=== PATIENT | male | born 1960 | race Caucasian/White ===

== ENCOUNTER 2016-07-03 06:20 | Emergency (ER) ==
[2016-07-03] MEDS ORDERED: NS 1,000 ML IV ONE ×2 (07:23→07:24)
--- NOTE | 2016-07-03 07:23 | PROVIDER DOCUMENTATION ---
HPI-Abdominal Pain/GI Problem - General Chief Complaint: Nausea/Vomiting Stated Complaint: N/V Time Seen by Provider: 07/03/16 07:16 Source: patient Allergies/Adverse Reactions: Patient Allergies Allergy/AdvReac Type Severity Reaction Status Date / Time ciprofloxacin [From Cipro] Allergy Unknown Verified 07/03/16 06:52 ciprofloxacin HCl * Allergy Unknown Verified 07/03/16 06:52 [From Cipro] codeine Allergy NAUSEA Verified 04/24/16 10:02 Home Medications: Home Medication List Medication Instructions Recorded Confirmed Last Taken Type Albuterol Sulfate [Proair Hfa] 8.5 gm INH PRN PRN 12/06/15 07/03/16 Unknown History Losartan/Hydrochlorothiazide 1 tab PO DAILY 12/06/15 07/03/16 Unknown History [Hyzaar 100/25 Tablet] Metoprolol [Lopressor] 50 mg PO BID 12/06/15 07/03/16 Unknown History Budesonide/Formoterol Fumarate 2 puff INH PRN PRN 07/03/16 07/03/16 Unknown History [Symbicort 160-4.5 Mcg Inhaler] Promethazine [Phenergan] 25 mg PO Q6H PRN PRN #20 tablet 07/03/16 Unknown Rx - History of Present Illness-ABD Nature of Presenting Problems: began with N/V last pm. Says stools, but no diarrhea. No fever. Only abd pain is soreness for repetitive vomitinh. Has had this sev times before. Was dx with H pylori last year, tx with abx, got better initially, but sx have returned since then. Abdominal Pain Onset Location: reports: other (no actual pain) Pain Radiation: reports: other (if no pain, cannot radiate) Quality of Pain: reports: none Severity in ED: reports: moderate Onset/Duration: reports: last night Timing: reports: still present Activities at Onset: reports: none Exposure to sick contacts?: No Modifying Factors: improves with: nothing Associated Symptoms: reports: nausea, vomiting. denies: diarrhea, fever/chills Similar Symptoms Previously?: Yes Recently seen or treated by another doctor?: No (seen here, has seen GI, but not recently. Does not see PCP for this) Review of Systems - Adult - REVIEW OF SYSTEMS - ADULT Constitutional: reports: no symptoms reported Eyes: reports: no symptoms reported Ears, Nose, Mouth & Throat: reports: no symptoms reported Cardiovascular: reports: no symptoms reported Respiratory: reports: no symptoms reported Gastrointestinal: reports: see HPI Genitourinary: reports: no symptoms reported Musculoskeletal: reports: no symptoms reported Integumentary: reports: no symptoms reported Neurological: reports: no symptoms reported Psychiatric: reports: no symptoms reported Endocrine: reports: no symptoms reported Hematologic/Lymphatic: reports: no symptoms reported Allergic/Immunologic: reports: no symptoms reported Past History - Adult - PAST MEDICAL HISTORY-ADULT Review of Records: reports: Medications Reviewed Major Childhood Illnesses: reports: denies history Cardiovascular: reports: HTN Respiratory: reports: COPD Gastrointestinal: reports: denies history Obstetrical/Gynecological: reports: denies history Genitourinary: reports: denies history Musculoskeletal: reports: neck/back injury Neurological: reports: denies history Psychiatric: reports: denies history Endocrine/Immune: reports: denies history Other Conditions: reports: denies history - PRIOR SURGERIES/PROCEDURES Surgical/Procedure History: reports: cholecystectomy, tonsillectomy, orthopedic (extremity) - PRIOR HOSPITALIZATIONS Prior Hospitalizations: reports: for other non-related - IMMUNIZATION STATUS Childhood Immunizations: See Nurse Assessment Flu Vaccine: See Nurse Assessment - FAMILY HISTORY Family History: reviewed, not pertinent - SOCIAL HISTORY Smoking: quit greater than 1 year Physical Exam-General - PHYSICAL EXAM-ADULT Initial Vital Signs Reviewed: Yes - CONSTITUTIONAL General Appearance: appears well, alert, no apparent distress - EYES Eyes: PERRL/EOMI, pink conjunctivae - HEAD, EARS, NOSE, MOUTH & THROAT HENMT: normocephalic/atraumatic, normal ENT inspection, other (oral menbranes sl dry) - NECK Neck: full range of motion, supple - RESPIRATORY Respiratory: lungs clear, normal breath sounds, no respiratory distress, no accessory muscle use - CARDIOVASCULAR Cardiovascular: regular rate, rhythm, no gallop, no murmur - GASTROINTESTINAL (ABDOMEN) Abdominal Exam: normal bowel sounds, non tender, soft - GENITOURINARY Male Genitalia: deferred Rectal Exam: deferred - MUSCULOSKELETAL Back Exam: normal inspection, no CVA tenderness, no vertebral tenderness Extremity: normal range of motion, non-tender - SKIN Integumentary: normal color, normal turgor, warm/dry - NEUROLOGIC Neurologic: food beverage manager II-XII nml as tested, grossly normal, no motor/sensory deficits - PSYCHIATRIC Psych/Mental Status: normal mood/affect, normal thought content, normal thought process, oriented x 3 Progress - PLAN OF CARE/RESULTS Progress/Plan/Lab Results: Vital Signs Temp Pulse Resp BP Pulse Ox 07/03/16 06:47 98.2 F 108 H 18 114/78 100 ciprofloxacin [From Cipro] Allergy (Verified 07/03/16 06:52) Unknown ciprofloxacin HCl * [From Cipro] Allergy (Verified 07/03/16 06:52) Unknown codeine Allergy (Verified 04/24/16 10:02) NAUSEA Albuterol Sulfate [Proair Hfa] 8.5 gm INH PRN PRN 12/06/15 Losartan/Hydrochlorothiazide [Hyzaar 100/25 Tablet] 1 tab PO DAILY 12/06/15 Metoprolol [Lopressor] 50 mg PO BID 12/06/15 Budesonide/Formoterol Fumarate [Symbicort 160-4.5 Mcg Inhaler] 2 puff INH PRN PRN 07/03/16 Orders Category Date Time Status 0.9% Sodium Chloride Inj [Ns] 1,000 ml Med 07/03/16 07:23 Discontinued IV 999 mls/hr 0.9% Sodium Chloride Inj [Ns] 1,000 ml Med 07/03/16 07:24 Discontinued IV 999 mls/hr Ondansetron [Zofran] Med 07/03/16 07:24 Discontinued 8 mg IV NOW ONE Pantoprazole [Protonix] Med 07/03/16 07:24 Discontinued 40 mg IV NOW ONE Sodium Chloride 0.9% Med 07/03/16 07:24 Discontinued 10 ml INJ NOW ONE - REASSESSMENT Reassessment #1 Time Reassessed: 09:43 Status: improving Reassessment Comment: now trying po fluids Reassessment #2 Time Reassessed: 10:35 (tolerating po) Status: improving Departure - Departure Time of Disposition Order: 10:34 DIAGNOSIS: Vomiting Qualifiers: Vomiting type: unspecified Vomiting Intractability: non-intractable Nausea presence: with nausea Qualified Code(s): R11.2 - Nausea with vomiting, unspecified Disposition: HOME 01 Certified Medical Emergency: Emergent Condition: Good Additional Instructions: ED Follow Up Instructions: You have been treated by a care provider in the Emergency Department. These instructions are being provided to you so you can have an understanding of how to care for yourself upon discharge. Upon discharge from the Emergency Department, you are responsible for making arrangements for follow-up care by a physician of your choice. Take all prescribed medications as directed. Return to the Emergency Department immediately for any new or worsening symptoms. You may call the Physician Referral phone number at [phone] to obtain a list of Physicians who are taking new patients. Prescriptions: Promethazine [Phenergan] 25 mg PO Q6H PRN PRN #20 tablet PRN Reason: Nausea And Vomiting Instructions: Nausea and Vomiting
[2016-07-03] MEDS ORDERED: PROTONIX IV ONE (07:24)
[2016-07-03] MEDS ORDERED: SODIUM CHLORIDE 0.9% INJ ONE (07:24)
[2016-07-03] MEDS ORDERED: ZOFRAN IV ONE (07:24)
[2016-07-03 11:05] VITALS: BP 108/73
== END 2016-07-03 11:04 | disposition home or self-care (01) ==
LOC: P.ED 06:20
DX: R11.2 Nausea with vomiting, unspecified (principal); I10 Essential (primary) hypertension; J44.9 Chronic obstructive pulmonary disease, unspecified; Z79.899 Other long term (current) drug therapy; Z87.891 Personal history of nicotine dependence
CPT/HCPCS: C9113; J2405; J7030; S0164

== ENCOUNTER 2019-04-13 04:44 | Inpatient (IN) ==
--- NOTE | 2019-04-08 08:32 | EKG Report ---
Test Performed on : 04/08/2019 08:23:27 AM Test Reason : PAT Blood Pressure : / mmHG Vent. Rate : 110 BPM Atrial Rate : 110 BPM P-R Int : 152 ms QRS Dur : 076 ms QT Int : 336 ms P-R-T Axes : 080 085 079 degrees QTc Int : 454 ms Sinus tachycardia. Otherwise normal ECG When compared with ECG of 20-FEB-2016 04:32, No significant change was found Confirmed by Micaela CARRASCO, Jason ([id number]) on 04/08/2019 8:42:25 AM
[2019-04-08 08:45] LABS: URINE SOURCE CLEAN CATCH
[2019-04-08 09:05] LABS: BILIRUBIN URINE NEGATIVE (NEGATIVE); BLOOD URINE NEGATIVE (NEGATIVE); COLOR YELLOW; GLUCOSE URINE NEGATIVE (NEGATIVE); KETONE URINE NEGATIVE (NEGATIVE); LEUKOCYTES URINE NEGATIVE (NEGATIVE); NITRITE URINE NEGATIVE (NEGATIVE); PH URINE 5.5; PROTEIN URINE NEGATIVE (NEGATIVE); SP GRAVITY URINE 1.014; TURBIDITY URINE CLEAR (CLEAR); UROBILINOGEN URINE NORMAL (NORMAL)
[2019-04-08 09:06] LABS: UR EPITHELIAL CELLS <10 /HPF (<10); URINE BACTERIA NEGATIVE /HPF; URINE RBC <10 /HPF (<10); URINE WBC <10 /HPF (<10)
[2019-04-08 09:17] LABS: BASO# 0.02 X1000 (0.0-0.2); BASO% 0.4 % (0.0-0.8); EOS# 0.07 X1000 (0.0-0.7); EOS% 1.2 % (0.0-10.0); HEMATOCRIT 36.8 % (42.0-52.0); HEMOGLOBIN 11.5 g/dL (14.0-18.0); HEMOGLOBIN A1C 5.9 % (4.8-6.0); LYMPH# 1.72 X1000 (1.2-3.4); LYMPH% 30.6 % (20.5-51.1); MCH 22.6 PG (27-31); MCHC 31.3 g/dL (33-37); MCV 72.4 FL (81-99); MPV 9.9 FL (7.4-10.4); NEUT# 2.91 X1000 (1.4-6.5); NEUT% 51.8 % (42.2-75.2); PLT 276 X1000 (130-400); RBC 5.08 XMIL (4.7-6.1); RDW 18.5 % (11.5-14.5); WBC 5.62 X1000 (4.8-10.8)
[2019-04-08 09:51] LABS: PROTIME 13.3 Seconds (11.0-16.0)
[2019-04-08 09:52] LABS: PTT 26.1 Seconds (22.3-41.8)
[2019-04-08 10:27] LABS: ALBUMIN 4.5 g/dL (3.5-5.0); CALCIUM 10.2 mg/dL (8.8-10.2); CREATININE 1.3 mg/dL (0.7-1.2)
[2019-04-13] MEDS ORDERED: DIPRIVAN 1% ONE ×3 (08:31→12:12)
[2019-04-13] MEDS ORDERED: VALIUM ONE (08:37)
[2019-04-13] MEDS ORDERED: COLACE ONE (08:37)
[2019-04-13] MEDS ORDERED: PEPCID ONE (08:37)
[2019-04-13] MEDS ORDERED: REGLAN ONE (08:37)
[2019-04-13] MEDS ORDERED: LYRICA ONE (08:38)
[2019-04-13] MEDS ORDERED: KEFZOL 1 GM/D5W 2 GM/100 ML IVPB ONE (08:38)
[2019-04-13] MEDS ORDERED: CELEBREX ONE (08:38)
[2019-04-13] MEDS ORDERED: LR 1,000 ML ONE (08:38)
[2019-04-13] MEDS ORDERED: DURAMORPH ONE (09:32)
[2019-04-13] MEDS ORDERED: TORADOL ONE (09:32)
[2019-04-13] MEDS ORDERED: MARCAINE 0.25% PF ONE (09:32)
[2019-04-13] MEDS ORDERED: SODIUM CHLORIDE 0.9% ONE (09:33)
[2019-04-13] MEDS ORDERED: NEOSPORIN G.U. IRRIGANT ONE (09:33)
[2019-04-13] MEDS ORDERED: EXPAREL 1.3% ONE (09:33)
[2019-04-13] MEDS ORDERED: CYKLOKAPRON 1,000 MG/NS 1,000 MG/100 ML IVPB ONE (09:33)
[2019-04-13] MEDS ORDERED: ROBINUL ONE (11:23)
[2019-04-13 11:48] LABS: URINE SOURCE CATH
[2019-04-13] MEDS ORDERED: ZOFRAN ONE (11:51)
[2019-04-13] MEDS ORDERED: DECADRON ONE (11:51)
[2019-04-13 11:53] LABS: BILIRUBIN URINE SMALL (NEGATIVE); BLOOD URINE NEGATIVE (NEGATIVE); COLOR YELLOW; GLUCOSE URINE NEGATIVE (NEGATIVE); KETONE URINE 20 mg/dL (NEGATIVE); LEUKOCYTES URINE SMALL (NEGATIVE); NITRITE URINE NEGATIVE (NEGATIVE); PROTEIN URINE 30 mg/dL (NEGATIVE); SP GRAVITY URINE 1.024; TURBIDITY URINE CLEAR (CLEAR); UROBILINOGEN URINE 6 mg/dL (NORMAL)
[2019-04-13 11:55] LABS: UR EPITHELIAL CELLS >10 /HPF (<10); URINE BACTERIA NEGATIVE /HPF; URINE RBC <10 /HPF (<10)
[2019-04-13] MEDS: DILAUDID ONE ×4 (13:15→13:41)
[2019-04-13] MEDS ORDERED: NS 1,000 ML ONE (13:32)
[2019-04-13] MEDS ORDERED: NS 1,000 ML IV SCH (13:45)
[2019-04-13] MEDS ORDERED: MORPHINE IV PRN ×3 (13:45)
[2019-04-13] MEDS ORDERED: OXY IR PO PRN (13:45)
[2019-04-13] MEDS ORDERED: ZOFRAN IV PRN (13:45)
--- NOTE | 2019-04-13 14:20 | OPERATIVE NOTE ---
PROCEDURE DATE: 04/13/2019 PREOPERATIVE DIAGNOSIS: Left hip degenerative joint disease. POSTOPERATIVE DIAGNOSIS: Left hip degenerative joint disease. PROCEDURE PERFORMED: Left anterior total hip arthroplasty using a DePuy size 15 standard offset + 4, 36 mm head with a 62 mm hemispherical shell and two 6.5 cancellous screws of 30 and 25 mm, and a 36 mm acetabular liner. ANESTHESIA: General. SURGEON: Ángel Hilliard MD. BIOLOGICAL TECHNICAL OFFICER: KETTY Gomez, who was present throughout the case and whose assistance was critical for successful completion of the case including assisting with the procedure and decision- making. BLOOD LOSS: Minimal. DRAINS: None. DESCRIPTION OF PROCEDURE: The patient was brought to the operative suite and placed in the supine position. After successful administration of spinal anesthesia, the patient was placed on the OSI table in the usual position for left hip. The left hip was then prepped and draped in the usual sterile fashion. A longitudinal incision was made beginning 2.5 cm distal and 3 cm lateral to the anterior-superior iliac spine, and extending distally and slightly laterally 8 cm, dissected sharply through the skin and subcutaneous tissue down to the tensor fascia. The tensor fascia was incised, dissected bluntly down to the deep tensor fascia. The deep tensor fascia was incised and circumflex vessels electrocauterized, exposing the anterior capsule. A T-capsulotomy was performed, exposing the femoral neck. Femoral neck cut was made with oscillating saw. The femoral head was removed with a power corkscrew. The labrum was resected. The acetabulum was serially reamed to a 62 to accept a 60 cup. The 60 cup was then driven in place in the proper amount of inclination and anteversion under fluoroscopy. Then two 6.5 cancellous screws were placed, 30 mm superiorly and 25 mm posterosuperiorly. Then the acetabular liner was locked onto the shell. Attention was then directed to the femur. It was externally rotated, extended, adducted, and elevated out of the wound with the hook on the OSI bed. The lateral neck was rongeured. The canal was serially broached to a size 15. A size 15 standard offset +4 neck length was found be excellent leg length offset, fit and fill of the stem, and stability of the hip. The trial was then removed. The definitive stem was seated onto the femur. Then the +4 neck length head was seated onto the Ibanez taper. The hip was again reduced. It was again found to be in excellent position. The hip was copiously irrigated with normal saline containing irrigant and Vashe irrigation. Then the knee was infiltrated with Exparel including the posterior capsule, anterior capsule, intermuscular, and subcutaneous tissue. The anterior capsule was repaired with 0 V-Loc. The tensor fascia was closed with 0 V-Loc. The skin edge was approximated with 2-0 Vicryl and closed with a 4-0 Monocryl and Prineo, and a sterile dressing was applied. The patient tolerated the procedure well without complication. At the end of the procedure, all counts were correct x2. The patient was transferred to the recovery room in stable condition. cc: Ángel Hilliard MD
[2019-04-13] MEDS: ULTRAM PO SCH ×2 (15:16→20:33)
[2019-04-13] MEDS: TYLENOL PO SCH ×2 (15:17→20:34)
[2019-04-13] MEDS ORDERED: CYKLOKAPRON 1,000 MG in NS 100 ML IV ONE (16:30)
[2019-04-13] MEDS: KEFZOL 2 GM/D5W 2 GM/50 ML IVPB IV SCH (18:11)
[2019-04-13] MEDS ORDERED: VENTOLIN HFA INH PRN (18:54)
[2019-04-13] MEDS ORDERED: COLACE PO PRN (18:54)
[2019-04-13] MEDS: OXY IR PO PRN (19:31)
[2019-04-13] MEDS: CELEBREX PO SCH (20:33)
[2019-04-13] MEDS: PERIDEX MT SCH (20:34)
[2019-04-13] MEDS: COLACE PO SCH (20:34)
[2019-04-13] MEDS: LYRICA PO SCH (20:35)
[2019-04-13] MEDS ORDERED: LOPRESSOR PO SCH (21:00)
[2019-04-14] MEDS: OXY IR PO PRN (00:23)
[2019-04-14] MEDS: KEFZOL 2 GM/D5W 2 GM/50 ML IVPB IV SCH (03:06)
[2019-04-14] MEDS: ULTRAM PO SCH ×2 (03:07→09:22)
[2019-04-14] MEDS: TYLENOL PO SCH ×2 (03:08→09:21)
[2019-04-14] MEDS ORDERED: XARELTO PO SCH (06:00)
[2019-04-14 06:59] LABS: HEMATOCRIT 27.5 % (42.0-52.0); HEMOGLOBIN 8.5 g/dL (14.0-18.0)
[2019-04-14] MEDS ORDERED: PRILOSEC PO SCH (07:00)
[2019-04-14 07:28] LABS: AGAP 11; BUN 10 mg/dL (8-22); CALCIUM 8.7 mg/dL (8.8-10.2); CHLORIDE 97 mmol/L (98-107); COSMO 267; CREATININE 1.2 mg/dL (0.7-1.2); ESTIMATED GFR > 60; GLUCOSE 127 mg/dL (70-104); POTASSIUM 4.1 mmol/L (3.5-5.1); SODIUM 133 mmol/L (136-145); TCO2 25 mmol/L (25-35)
[2019-04-14] MEDS ORDERED: SYMBICORT 160/4.5 MICROGM INHALER INH SCH (07:30)
[2019-04-14] MEDS ORDERED: SALINE LOCK IV FLUID XX ONE (07:43)
[2019-04-14] MEDS ORDERED: HYDROCHLOROTHIAZIDE PO SCH (09:00)
[2019-04-14] MEDS ORDERED: COZAAR PO SCH (09:00)
[2019-04-14] MEDS ORDERED: DECADRON IV ONE (09:00)
[2019-04-14] MEDS: PERIDEX MT SCH (09:20)
[2019-04-14] MEDS: COLACE PO SCH (09:21)
[2019-04-14] MEDS: CELEBREX PO SCH (09:21)
[2019-04-14] MEDS: LYRICA PO SCH (09:21)
[2019-04-14 12:06] VITALS: BP 126/71
--- NOTE | 2019-04-15 10:23 | DISCHARGE SUMMARY ---
ADMISSION DATE: 04/13/2019 DISCHARGE DATE: 04/14/2019 DISCHARGE DIAGNOSIS: Left hip degenerative joint disease status post left total hip arthroplasty. DISCHARGE MEDICATION LIST: See discharge medication list. DISPOSITION: The patient discharged home with home health and physical therapy. Instructed to return for any signs or symptoms of infection or deep venous thrombosis. Instructed to return to see Dr. Hilliard next . HOSPITAL COURSE: On the day of admission, patient underwent a left anterior total hip arthroplasty. His postoperative course was unremarkable. At discharge, he is afebrile, tolerating a regular diet, ambulating well with physical therapy. His wound is clean, dry, intact without sign of infection. He is discharged home in stable condition. Instructed to follow up as described above. cc: Ángel Hilliard MD
== END 2019-04-14 15:30 | disposition home or self-care (01) | DRG 470 ==
LOC: SURHOLD 04:44 → 4N 11:25
PROVIDERS: ADMIT Orthopaedic Surgery; ATTEND Orthopaedic Surgery